=== PATIENT | female | born 1950 | race African-American/Black ===

== ENCOUNTER → 2016-09-30 | Outpatient (CLI) | payer MEDICARE, OTHER ==
--- NOTE | ~2016-09-30 | BD1 ---
[facility] A Service of [facility] & [facility] RADIOLOGY TEXT RESULTS PATIENT: CAMILLE AYALA LOCATION: [facility] : 48 UNIT #: [id number] AGE: [address]: LUCIANO BUTTS SEX: F ORDER DR: [id number] [facility] [address] [place], [place] [address] [id number] O MR#: [id number] Acc #: [id number] NAME: CAMILLE AYALA : 1950 SEX: F STUDY DATE/TIME: 09/30/2016 10:46 UNIT: [facility] ROOM: STUDY DESCRIPTION: Dexa Bone Dens 1+ Site Attending Physician: Luciano Butts Referring Physician: Luciano Butts Ordering Physician: Luciano Butts Primary Care Physician: Luciano Butts MEDICAL IMAGING REPORT This report is preliminary unless electronic signature is present EXAM DXA scan HISTORY 66-year-old female complains of hip pain, postmenopausal screening for osteoporosis. FINDINGS Bone density was assessed utilizing a Hologic bone densitometer. Total bone density within the lumbar spine was calculated at 0.753 g/cm2 with a T-score of -2.7. Total bone density within the proximal left femur was calculated at 0.782 g/cm2 with a T-score of -1.3. IMPRESSION Total bone density within the lumbar spine is greater than 2.5 standard deviations below the mean and is compatible with World Health Organization criteria for osteoporosis. This places the patient at increased fracture risk. Dictated by... Ari Boo M.D. THIS IS AN ELECTRONICALLY VERIFIED REPORT Ari Boo M.D. at 10/01/2016 1:58 PM Bina TD: 09/30/2016 14:36 JOB #: [id number] MEDICAL IMAGING REPORT Page 1 of 1 COPY
== END | disposition home or self-care (01) ==
LOC: CWCC 10:09
DX: Z13.820 Encounter for screening for osteoporosis (principal); S72.009A Fracture of unspecified part of neck of unspecified femur, initial encounter for closed fracture; E66.9 Obesity, unspecified; Z68.30 Body mass index [BMI] 30.0-30.9, adult; M81.0 Age-related osteoporosis without current pathological fracture
CPT/HCPCS: 77080